=== PATIENT | male | born 1980 | race Caucasian/White ===

== ENCOUNTER 2024-05-29 16:39 | Outpatient (CLI) | payer BC, SELFPAY | END 2024-05-29 16:40 | disposition home or self-care (01) | PROVIDERS: PCP Internal Medicine; Visit Provider Internal Medicine | DX: J45.909 Unspecified asthma, uncomplicated (principal); Z13.6 Encounter for screening for cardiovascular disorders; Z13.9 Encounter for screening, unspecified | CPT/HCPCS: 80053; 80061 ==

== ENCOUNTER 2025-03-02 14:47 | Emergency (ER) | payer BC, SELFPAY ==
--- OUTSIDE RECORDS SUMMARY | 2025-03-02 14:49 | XMS_ITS | Clinical Summary ---
Author Organization [facility] Address [address] [place] [id number] Care Team Providers Care Special Procedure Tech Name Role Phone Jimi Jara MD Primary Care Provider Allergies Active Allergy Reactions Criticality Noted Date Comments Penicillins Rash 09/02/2008 Medications albuterol HFA (PRO-AIR,VENTOLIN, PROVENTIL) 90 mcg/actuation inhalerIndications :Asthma, unspecified asthma severity, uncomplicated Inhale 2 Puffs by mouth 4 times daily if needed. 1 Inhaler 1 5 Active Active Problems Problem Noted Date Diagnosed Date Obesity 01/16/2015 Mixed hyperlipidemia 01/16/2015 Immunizations Immunization Administration Dates Next Due AMB Influenza, IIV3 (Age >=3 years)([facility]) 05/20/2010,06/24/2008 Hepatitis B (Adult) 03/11/2010,09/24/2009 Influenza, IIV3 (Age >=3 years) 04/21/2009 Tdap 02/05/2010 Family History Medical History Relation Name Comments Cancer-colon Neg. Cancer-prostate Neg. Diabetes Neg. Heart Disease Neg. Relation Name Status Comments Neg. 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 Gender Identity Not on file Sexual Orientation Not on file Obstetrics History Last Filed Vital Signs Vital Sign Reading Time Taken Comments Blood Pressure 119/77 01/16/2015 2:47 PM CDT Pulse 60 01/16/2015 2:47 PM CDT Temperature 36.7 C (98 F) 01/16/2015 2:47 PM CDT Respiratory Rate - - Oxygen Saturation 97% 01/16/2015 2:47 PM CDT Inhaled Oxygen Concentration - - Weight 111.7 kg (246 lb 4.8 oz) 01/16/2015 2:47 PM CDT Height 180.3 cm (5' 11) 01/16/2015 2:47 PM CDT Body Mass Index 34.35 01/16/2015 2:47 PM CDT Plan of Treatment Health Maintenance Due Date Last Done Comments Depression screening for age 12+ 1992 HIV for age 15-65 10/16/1995 BMI (ht and wt on same day) for age 18+ 1998 Hepatitis C screening for ag e 18-79 1998 Hepatitis B series for 19+ ( 3 of 3 - 19+ 3-dose series) 05/06/2010 03/11/2010, 09/24/2009 Lipids for age 35-44 01/22/2020 01/21/2015, 09/10/2012 Tetanus booster 02/06/2020 02/05/2010 COVID-19 vaccine series (2023- season) 2024 Influenza Vaccine (#1) 2025 0, 04/21/2009, 06/24/2008 Pneumococcal series for age 6-49 Aged Out No longer eligible b ased on patient's age to complete this topic Procedures Procedure Name Priority Date/Time Associated Diagnosis Comments LIPID PANEL W REFLEX MEASURED LDL Routine 01/21/2015 7:06 AM CDT Mixed hyperlipidemia from Last 3 Months or Most Recently Relevant to Health Maintenance Results * (ABNORMAL) LIPID PANEL W REFLEX MEASURED LDL (01/21/2015 7:06 AM CDT) CHOLESTEROL,TOTAL 195 100 - 199 mg/dL 01/21/2015 8:25 AM CDT [facility] TRIGLYCERIDES 324(H) <150 mg/dL 01/21/2015 8:25 AM CDT [facility] HDL CHOLESTEROL 28(L) >40 mg/dL 5 8:25 AM CDT [facility] NON-HDL CHOLESTEROL 167(H) <145 mg/dl 01/21/2015 8:25 AM CDT [facility] CHOL/HDL RATIO 6.96(H) <4.50 01/21/2015 8:25 AM CDT [facility] LDL CHOLESTEROL 102 <=130 mg/dL 01/21/2015 8:25 AM CDT [facility] PATIENT STATUS FASTING 01/21/2015 8:25 AM CDT [facility] Blood specimen (specimen) BLOOD SPECIMEN / Unknown Venipuncture / Unknown 01/21/2015 7:06 AM CDT 01/21/2015 7:06 AM CDT us Jimi Jara MD CHEMISTRY Final Result [facility] [address] [place] [address], from Last 3 Months or Most Recently Relevant to Health Maintenance Care Teams Special Procedure Tech Relationship Specialty Start Date End Date Jimi Jara MD [address] [place] [address] PCP - General Family Practice 01/16/15
--- OUTSIDE RECORDS SUMMARY | 2025-03-02 14:49 | XMS_ITS | Clinical Summary ---
Author Organization [facility] Address [address] [place] [id number] Care Team Providers Care Drawer Fitter Name Role Phone [facility] Primary Ca re Provider Allergies No known active allergies Social History Tobacco Use Types Packs/Day Years Used Date Smoking Tobacco: Never Assessed Adolescent Education Answer Date Record ed Getting School Help Needed Not on file 04/22 Sex and Gender Information Value Date Recorded Sex Assigned at Not on file Legal Sex Male 3:04 PM CDT Gender Identity Not on file Sexual Orientation Not on file Last Filed Vital Signs Vital Sign Reading Time Taken Comments Blood Pressure 127/84 11/25/2021 8:11 PM CDT Pulse 58 11/25/2021 8:11 PM CDT Temperature 37.1 C (98.8 F) 11/25/2021 7:00 PM CDT Respiratory Rate 18 11/25/2021 8:11 PM CDT Oxygen Saturation 99% 11/25/2021 8:11 PM CDT Inhaled Oxygen Concentration - - Weight - - Height - - Body Mass Index - - Plan of Treatment Not on file Care Teams Drawer Fitter Relationship Specialty Start Date End Date [facility] [address] [place] [address] PCP - General 11/25/21
[2025-03-02 14:55] VITALS: BP 112/74; PULSE 60; RESP 18; TEMP 36.5; O2SAT 98; BMI 32.1
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
[2025-03-02] MEDS: LIDOCAINE 1% 5 ml (pf) 5 ML VIAL 3 ML INJECTION (15:41)
== END 2025-03-02 16:01 | disposition home or self-care (01) ==
PROVIDERS: Emergency Provider Family Medicine; PCP Internal Medicine
DX: S61.217A Laceration without foreign body of left little finger without damage to nail, initial encounter (principal); W26.9XXA Contact with unspecified sharp object(s), initial encounter
CPT/HCPCS: 12001; 99283; 99284